=== PATIENT | female | born 1965 | race Hispanic/Latino ===

== ENCOUNTER 2025-07-14 08:22 | Outpatient (CLI) | payer OTHER | END 2025-07-14 08:23 | disposition home or self-care (01) | LOC: CSHMAMMO 08:22 | PROVIDERS: ATTEND Student in an Organized Health Care Education/Training Program | DX: N64.4 Mastodynia (principal); Z80.3 Family history of malignant neoplasm of breast | CPT/HCPCS: 77066; G0279 ==